=== PATIENT | male | born 1965 | race Caucasian/White ===

== ENCOUNTER → 2021-04-16 13:08 | Outpatient (CLI) | payer OTHER, SELFPAY ==
[2021-04-16 13:38] LABS: COVID19 -Nasal RAPID Negative (Negative)
--- NOTE | 2021-04-17 19:06 | DI.NM.S_ITS ---
DATE OF SERVICE: 04/16/2021 PROCEDURE PERFORMED: Exercise perfusion study. INDICATIONS: Coronary artery disease with history of RCA stent with reserved disease of LAD and diagonal, hypertension and hyperlipidemia. RADIOPHARMACEUTICAL: 26.0 millicurie technetium-99m Myoview IV was injected at stress and 26.1 millicurie technetium-99m Myoview IV was injected at rest. CARDIAC STRESS: The patient underwent exercise perfusion study under the supervision of an attending staff. The patient walked on Pratik protocol for 4 minutes and 44 seconds, achieved 91 percent of target heart rate. Baseline blood pressure 120/70 mmHg. Peak blood pressure 200/100 mmHg. The patient achieved 7.3 METs of workload. Functional aerobic impairment positive 44 percent. Baseline rhythm was sinus. During stress, no convincing ischemic changes seen. No significant arrhythmias seen. No chest pain. However, patient felt fatigue and leg pain. RAW DATA: There is increased subdiaphragmatic activity. The patient's weight is 308 pounds. GATED STUDY: Stress LV ejection fraction 68 percent without any obvious wall motion abnormalities. Resting end-diastolic volume 148 mL. TID ratio 0.92, which is within normal limits. Lung/heart ratio 0.47, which is abnormal. MYOCARDIAL PERFUSION SCAN: Stress supine, resting supine and stress prone images were compared to each other. The stress supine and resting supine images revealed moderate-size, mild to moderately decreased perfusion of inferior wall extending into the inferoapex, which got significantly improved during stress prone images, suggestive of diaphragmatic tissue attenuation artifact. CONCLUSION: I will call this study likely a normal myocardial perfusion study with evidence of diaphragmatic tissue attenuation artifact, which got resolved during stress prone images. However, the patient has diminished exercise tolerance. Functional aerobic impairment positive 44 percent. Mildly hypertensive blood pressure response. No obvious ischemic electrocardiographic changes or arrhythmias. Preserved left ventricular function. Lung/heart ratio abnormal suggestive of elevated left ventricular filling pressure. Consider 2D echo to make sure there is no diastolic dysfunction or valvular pathology. As far as perfusion scan is concerned, this is a low-risk myocardial perfusion scan. Hernesto Malloy - MORGAN/easton/antwon doc#: [id number]/job#: [id number] dd: 04/17/2021 17:03:00 dt: 04/17/2021 18:35:00 DICTATING MD/COPIES TO: Adan Maharaj MD COPIES MNE: KRISTIN;
== END ==
PROVIDERS: PCP Registered Nurse; Referring Provider Nurse Practitioner; Visit Provider Nurse Practitioner
DX: I25.10 Atherosclerotic heart disease of native coronary artery without angina pectoris (principal)
CPT/HCPCS: 78452; 87635; 93017; A9502